=== PATIENT | female | born 1965 | race Caucasian/White ===

== ENCOUNTER → 2017-11-24 | Day surgery (SDC) | payer OTHER ==
[~2017-11-24] MED LIST: CEFAZOLIN SOD 1 GM VIAL ONE; DEXAMETHASONE SOD PHOS INJ 4 MG/ML VIAL ONE; FENTANYL CITRATE/PF 100MCG/2 ML INJ ONE; KETOROLAC TROMETHAMINE 30 MG/ML VIAL ONE; LIDOCAINE HCL 2% LOCAL INJ 5 ML SDV VIAL INJ ONE; METOCLOPRAMIDE HCL 10 MG/2ML VIAL ONE; MIDAZOLAM HCL 2 MG/2 ML VIAL ONE; ONDANSETRON HCL INJ 2 MG/ML VIAL ONE; PROMETHAZINE HCL (IM) 25 MG/ML VIAL ONE; PROPOFOL IV EMULSION 10 MG/ML 20 ML VIAL ONE; SEVOFLURANE INHAL SOLN 250 ML PEN BTL ONE
--- NOTE | 2017-11-24 13:57 | Operative Report ---
DATE OF PROCEDURE: November 24, 2017 PSYCHIATRIC SOCIAL WORKER: Joe Leyva PA-C The patient was brought to the operating room for induction of anesthesia. Throughout this case, my PA's assistance was necessary for retraction of soft tissue and positioning of the extremity. This allows for efficient and technically successful execution of the operation and is considered medically necessary. PREOPERATIVE DIAGNOSIS: Left knee lateral meniscal tear. POSTOPERATIVE DIAGNOSES 1. Left knee lateral meniscal tear. 2. 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 PROCEDURES 1. Left knee arthroscopy. 2. Partial lateral meniscectomy. 3. Chondroplasty of the medial tibial plateau, lateral tibial plateau and trochlear groove. INDICATIONS: The patient is a 52-year-old lady who complains of incapacitating pain in her left knee. She has failed conservative management for the past few months under the care of an outside physician. She states the symptoms are dramatically compromising her quality of life. She would like to proceed with more aggressive intervention. The risks and benefits of arthroscopy have been explained. She states she understands and wishes to proceed. DESCRIPTION OF PROCEDURE: The patient was brought to the operating room and placed under general anesthetic. Her left lower extremity was prepped and draped in a sterile manner. She received prophylactic antibiotics in the holding area. A preoperative time out was performed. The patient was status post a previous arthroscopy many years ago. We used the previous portal incision on the inferolateral joint line. The knee was insufflated with sterile saline and systematically inspected. An outflow portal was established in the superomedial patellar pouch. A working portal was established along the inferomedial joint line. She was noted have grade-2 changes of chondromalacia in the trochlear groove. These edges were gently contoured to stable margins. There was fairly extensive synovitis in the suprapatellar pouch. The medial compartment was inspected. The medial meniscus was intact and pristine. There was a large area of the weightbearing surface of the medial femoral condyle that demonstrated some flap tears of the cartilage and were consistent with grade-2 chondromalacia. The unstable margins were gently contoured. The meniscus was probed on the inferior and superior articular surfaces. There was no evidence of a tear. I did not see any evidence of a previous medial meniscectomy either. The cruciate ligaments were inspected and noted to be intact. The lateral compartment was inspected. There was a mild radial tear of the free edge of the lateral meniscus. This was debrided back to a stable margin using a combination of biting forceps and mechanical shaver. An area of grade-2 chondromalacia of the lateral tibial plateau was also gently contoured. The knee was then thoroughly irrigated. The arthroscopic instruments were removed. The portal incisions were closed with nylon stitches. A sterile bandage was applied. She was extubated and transported to the recovery room in stable condition. Job#: [id number]
== END | disposition home or self-care (01) ==
LOC: OR 09:27
PROVIDERS: ATTEND Specialist
DX: S83.272A Complex tear of lateral meniscus, current injury, left knee, initial encounter (principal); M94.262 Chondromalacia, left knee; M65.862 Other synovitis and tenosynovitis, left lower leg; J30.2 Other seasonal allergic rhinitis; N20.0 Calculus of kidney; Y93.89 Activity, other specified; W18.39XA Other fall on same level, initial encounter; Z01.810 Encounter for preprocedural cardiovascular examination
CPT/HCPCS: 29881; 93005; J0690; J1100; J1885; J2001; J2250; J2405; J2550; J2765